=== PATIENT | female | born 1980 | race Caucasian/White ===

== ENCOUNTER → 2022-01-22 | Outpatient (CLI) | payer OTHER ==
[2022-01-22 13:09] LABS: THYROID STIMULATING HORMONE 0.473 uIU/ML (0.358-3.740); VALPROIC ACID (DEPAKOTE) 34.1 UG/ML (50.0-100.0)
[2022-01-22 13:46] LABS: TOTAL 25(OH) VITAMIN D 17.4 NG/ML (30.0-100.0)
== END ==
LOC: M LAB 11:56
PROVIDERS: ATTEND Registered Nurse Psychiatric/Mental Health
DX: F32.89 Other specified depressive episodes (principal)